=== PATIENT | male | born 2005 | race Asian ===

== ENCOUNTER 2024-07-25 21:13 | Emergency (ER) | payer OTHER ==
[~2024-07-25] VITALS: Ht 170.2 cm; Wt 102.3 kg
[2024-07-25 21:20] VITALS: TEMP 98.5
[2024-07-25 22:18] VITALS: BP 136/75; PULSE 85; RESP 18; O2SAT 98
== END 2024-07-25 23:37 | disposition home or self-care (01) ==
LOC: EMS 21:13
DX: S61.211A Laceration without foreign body of left index finger without damage to nail, initial encounter (principal); Z91.013 Allergy to seafood; W26.8XXA Contact with other sharp object(s), not elsewhere classified, initial encounter; Y93.89 Activity, other specified; Y92.89 Other specified places as the place of occurrence of the external cause; Y99.8 Other external cause status
CPT/HCPCS: 12001; 99282; Z7502

== ENCOUNTER 2024-07-29 19:23 | Emergency (ER) | payer OTHER ==
[~2024-07-29] VITALS: Ht 170.2 cm; Wt 100.0 kg
[2024-07-29 19:45] VITALS: BP 135/89; PULSE 116; RESP 16; TEMP 98; O2SAT 98
== END 2024-07-29 21:44 | disposition left against medical advice (07) ==
LOC: EMS 19:23
DX: Z48.00 Encounter for change or removal of nonsurgical wound dressing (principal); Z53.21 Procedure and treatment not carried out due to patient leaving prior to being seen by health care provider